=== PATIENT | male | born 1955 | race Caucasian/White ===

== ENCOUNTER → 2019-09-03 09:10 | Outpatient (POV) | payer SELFPAY | PROVIDERS: PCP Emergency Medicine; Visit Provider Dermatology | DX: Z00.00 Encounter for general adult medical examination without abnormal findings (principal) ==

== ENCOUNTER → 2021-03-02 07:41 | Outpatient (CLI) | payer OTHER, SELFPAY ==
[2021-03-02 08:45] LABS: Basophils # 0.1 K/mm3 (0-0.2); Basophils % 1.2 % (0.1-2.0); Eosinophils # 0.1 K/mm3 (0.0-0.4); Eosinophils % 2.2 % (0.1-12.0); Hematocrit 47.7 % (42.0-52.0); Hemoglobin 15.3 g/dL (14.1-18.0); Lymphocytes # 2.1 K/mm3 (0.7-4.5); Lymphocytes % 42.6 % (10-50); Mean Corpuscular HGB Conc 32.1 g/dL (31.8-35.4); Mean Corpuscular Hemoglobin 32.9 pg (27.0-31.2); Mean Corpuscular Volume 102.4 fl (80-94); Mean Platelet Volume 8.2 fl (7.4-10.4); Monocytes # 0.3 K/mm3 (0.1-1.0); Monocytes % 6.8 % (1.7-9.3); Neutrophils # 2.3 K/mm3 (1.8-7.8); Neutrophils % 47.2 % (37.0-80.0); Platelet Count 190 K/mm3 (142-424); Red Blood Count 4.66 M/mm3 (4.60-6.20); Red Cell Distribution Width 12.9 % (11.5-17.5); White Blood Count 4.9 K/mm3 (4.8-10.8)
[2021-03-02 10:33] LABS: Alanine Aminotransferase 51 U/L (12-78); Albumin Level 4.4 g/dl (3.5-5.0); Albumin/Globulin Ratio 1.8 (1.1-1.8); Alkaline Phosphatase 81 U/L (38-126); Anion Gap 10.9 mEq/L (5-15); Aspartate Amino Transferase 44 U/L (17-59); Bilirubin,Total 0.5 mg/dl (0.2-1.3); Blood Urea Nitrogen 29 mg/dl (9-20); Calcium 9.9 mg/dl (8.4-10.2); Carbon Dioxide 32 mmol/L (22.0-30.0); Chloride 102 mmol/L (98-107); Chol/HDL Ratio 3.2 (1-3.5); Cholesterol 153 mg/dl (140-200); Estimated Glomerular Filt Rate 47 ml/min (>60); GFR (African American) 57 ML/MIN (>60); Globulin 2.5 g/dL (1.3-3.2); Glucose 102 mg/dl (74-100); HDL Cholesterol 48 mg/dl (40-60); Magnesium 2.3 mg/dl (1.6-2.3); Potassium 4.9 mmoL/L (3.5-5.1); Sodium 140 mmol/L (136-145); Total Protein,Serum 6.9 g/dl (6.3-8.2); Triglycerides 129 mg/dl (30-150); VLDL Cholesterol 26 mg/dL (0-40)
[2021-03-02 10:44] LABS: Direct LDL Cholesterol 77.84 mg/dL (100-129)
== END ==
PROVIDERS: Visit Provider Nuclear Medicine Nuclear Cardiology
DX: I25.118 Atherosclerotic heart disease of native coronary artery with other forms of angina pectoris (principal); I10 Essential (primary) hypertension; E78.00 Pure hypercholesterolemia, unspecified
CPT/HCPCS: 36415; 80053; 80061; 83735; 85025

== ENCOUNTER 2021-07-10 09:02 | Emergency (ER) | payer OTHER, SELFPAY ==
[2021-07-10 09:31] VITALS: BP 106/67; PULSE 69; RESP 17; TEMP 36.9; O2SAT 100; BMI 27.4
[2021-07-10 09:33] LABS: UTC Influenza A Antigen Negative (Negative); UTC Influenza B Antigen Negative (Negative)
--- NOTE | 2021-07-10 09:33 | HMH.EDUTC ---
[facility] [place] Disposition Clinical Impression: Encounter for laboratory testing for COVID-19 virus Disposition: Home, Self-Care Condition on Discharge: Good Instructions: DI for COVID-19 (Suspected or Confirmed ) Additional Instructions: Your COVID-19 test results should be available later today. Please isolate as if you are positive until test results received Referrals: Inderjit Ibrahim MD [Primary Care Provider] - Time of Disposition: 09:41 Medical Decision Making - Ari Inquiry Pt receiving controlled substance: No Vital Signs: 07/10/21 09:31 Temperature 98.4 F Temperature Source Oral Pulse Rate [Left Radial] 69 Respiratory Rate 17 Blood Pressure [Right Arm] 106/67 L Blood Pressure Mean [Right Arm] 80 02 Sat by Pulse Oximetry 100 - Lab Data Lab results reviewed: Yes: I reviewed the patient's lab results. Orders (Tests/Meds): ORDERS Category Date Time Status Full Resp Panel w/COVID ([facility]) Routine Lab 07/10/21 09:19 Ordered [facility] [place] HPI - General Stated complaint: fever Time Seen by Provider: 07/10/21 09:33 Source of Information: Patient Description of Symptoms (Recalled from Triage Doc. by RN): patient comes in today for a covid test. patient states that last night he ran a fever and had body aches. HEENT Symptoms (Recalled from RN notes): No Resp Symptoms (Recalled from RN notes): No Skin Symptoms (Recalled from RN notes): No MS Symptoms (Recalled from RN notes): No Functional Status (Recalled from RN notes): wnl - History of Present Illness Provider Complaint: Patient had acute onset presumed fever, body aches last night. States has a forehead thermometer and he couldn't get an accurate reading. Has joint and muscle soreness. Denies ear pain, congestion, cough, vomiting, diarrhea. No known sick contacts. Onset (ago): day(s) (1) Location: chest Relieving factors: none Exacerbating factors: none Associated symptoms: fever/chills Treatments prior to arrival: none - Related Data Home Medications Medication Instructions Recorded Confirmed fluorouracil 5 % topical cream TOPICAL 10/29/19 10/29/19 isosorbide mononitrate 60 mg mg PO 10/29/19 10/29/19 tablet,extended release 24 hr lorazepam 0.5 mg tablet 0.5 mg PO tab 10/29/19 10/29/19 metoprolol succinate 25 mg PO 10/29/19 10/29/19 tablet,extended release 24 hr nitroglycerin 0.4 mg sublingual 0.4 mg SUBLINGUAL Q5M PRN 10/29/19 10/29/19 tablet pantoprazole 40 mg tablet,delayed 40 mg PO tab 10/29/19 10/29/19 release potassium chloride 20 mEq 20 meq PO DAILY 10/29/19 10/29/19 tablet,extended release ranolazine 500 mg tablet,extended 500 mg PO BID 10/29/19 10/29/19 release,12 hr sucralfate 1 gram tablet 1 g PO tab 10/29/19 10/29/19 trazodone 50 mg tablet 50 mg PO tab 10/29/19 10/29/19 triamcinolone acetonide 0.1 % TOPICAL 10/29/19 10/29/19 topical ointment Previous Rx's Medication Instructions Recorded fluconazole 150 mg tablet 150 mg PO Q OTHER DAY #3 tab 10/29/19 Allergies Allergy/AdvReac Type Severity Reaction Status Date / Time clopidogrel [From Plavix] Allergy Intermediate upset Verified 07/10/21 09:33 stomach - Worker's Comp Is this a Worker's Comp case?: No [facility] History - Hepatitis A Screen Attestation statement:: This patient has been screened for Hepatitis A risk factors. I have reviewed the patient's past medical history: Yes Medical History: Reports:: Gastroesophageal Reflux Disease(GERD), Hypertension, Palpitations, Ulcer, Valvular Heart Disease (leaky valve) Other Surgeries: Yes: Cardiac Surgery, Coronary Stent, EGD Amputation: No Fractures: Yes (elbow) - Social History Smoking Status: Never smoker Alcohol Intake: current Alcohol Intake Frequency:: holidays/special occasions only Substance Use Type: denies use Occupational Status: retired Family Hx:: Cancer, Diabetes, Heart Attack, Hypertension, Stroke ROS Obtained: Yes All systems reviewed & no additional comp
[2021-07-10 09:37] LABS: Adenovirus,PCR Not Detected (NotDetected); Bordetella Pertussis Not Detected (NotDetected); Chlamydophila Pneumoniae, PCR Not Detected (NotDetected); Coronavirus 19, PCR Not Detected (NotDetected); Coronavirus 229E Not Detected (NotDetected); Coronavirus NL63 Not Detected (NotDetected); Coronavirus OC43 Not Detected (NotDetected); Coronovirus HKU1,PCR Not Detected (NotDetected); Human Metapneumovirus Not Detected (NotDetected); Influenza A, PCR Not Detected (NotDetected); Influenza AH1, 2009 Not Detected (NotDetected); Influenza AH1, PCR Not Detected (NotDetected); Influenza AH3,PCR Not Detected (NotDetected); Influenza B, PCR Not Detected (NotDetected); Mycoplasma Pneumoniae, PCR Not Detected (NotDetected); Parainfluenza 1, PCR Not Detected (NotDetected); Parainfluenza 2, PCR Not Detected (NotDetected); Parainfluenza 3, PCR Not Detected (NotDetected); Parainfluenza 4, PCR Not Detected (NotDetected); Respiratory Syncytial Virus Not Detected (NotDetected); Rhinovirus/Enterovirus Not Detected (NotDetected)
[2021-07-10 09:43] VITALS: BP 106/67; PULSE 69; RESP 17; TEMP 36.9
== END 2021-07-10 09:45 | disposition home or self-care (01) ==
PROVIDERS: Emergency Provider Physician Assistant; PCP Emergency Medicine
DX: Z20.822 Contact with and (suspected) exposure to COVID-19 (principal); R50.9 Fever, unspecified; R52 Pain, unspecified
CPT/HCPCS: 87581; 87632; 87798; 87804; 99212; C9803; G0463; U0003; U0005

== ENCOUNTER → 2021-08-13 07:51 | Outpatient (CLI) | payer OTHER, SELFPAY ==
--- NOTE | 2021-08-13 08:00 | CT_ITS ---
FINAL REPORT TECHNIQUE: Axial CT images were performed from the lung apices through the upper abdomen. Coronal reformats were submitted. This study was performed with techniques to keep radiation doses as low as reasonably achievable (ALARA). Individualized dose reduction techniques using automated exposure control or adjustment of mA and/or kV according to the patient's size were employed. CLINICAL HISTORY: ENLARGED LYMPH NODES, pain mid chest per patient FINDINGS: There is no axillary adenopathy. There is no hilar or mediastinal mass or adenopathy. Heart size is normal. There is no pericardial or pleural effusion. Limited images of the upper abdomen are unremarkable. No suspicious infiltrate or nodule is identified on lung window images. There is a calcified granuloma in the left lower lobe. IMPRESSION: No acute process. Reviewed, Interpreted and Dictated by Marcelino Carter III, MD Transcribed by Urvashi Leos Authenticated and [facility]
== END ==
PROVIDERS: PCP Emergency Medicine; Visit Provider Nurse Practitioner Family
DX: R59.0 Localized enlarged lymph nodes (principal)
CPT/HCPCS: 71250

== ENCOUNTER 2024-04-04 07:24 | Outpatient (CLI) | payer MEDICARE, SELFPAY ==
[2024-04-04 08:04] LABS: Basophils % 0.4 % (0.1-2.0); Eosinophils # 0.1 K/mm3 (0.0-0.4); Eosinophils % 2.2 % (0.1-12.0); Hematocrit 42.9 % (42.0-52.0); Hemoglobin 15.1 g/dL (14.1-18.0); Lymphocytes # 1.5 K/mm3 (0.7-4.5); Lymphocytes % 32.5 % (10-50); Mean Corpuscular HGB Conc 35.2 g/dL (31.8-35.4); Mean Corpuscular Hemoglobin 32.3 pg (27.0-31.2); Mean Corpuscular Volume 91.9 fl (80-94); Mean Platelet Volume 9.9 fl (7.4-10.4); Monocytes # 0.5 K/mm3 (0.1-1.0); Monocytes % 9.9 % (1.7-9.3); Neutrophils # 2.5 K/mm3 (1.8-7.8); Platelet Count 156 K/mm3 (142-424); Red Blood Count 4.67 M/mm3 (4.60-6.20); Red Cell Distribution Width 11.8 % (11.5-17.5); White Blood Count 4.6 K/mm3 (4.8-10.8)
[2024-04-04 08:31] LABS: Alanine Aminotransferase 52 U/L (12-78); Albumin Level 4.3 g/dl (3.5-5.0); Alkaline Phosphatase 81 U/L (38-126); Aspartate Amino Transferase 43 U/L (17-59); Bilirubin,Total 0.6 mg/dl (0.2-1.3); Blood Urea Nitrogen 28 mg/dl (9-20); Calcium 9.6 mg/dl (8.4-10.2); Carbon Dioxide 31 mmol/L (22.0-30.0); Chloride 104 mmol/L (98-107); Chol/HDL Ratio 3.3 (1-3.5); Cholesterol 129 mg/dl (140-200); Estimated Glomerular Filt Rate 47 ml/min (>60); GFR (African American) 57 ML/MIN (>60); Globulin 2.1 g/dL (1.3-3.2); Glucose 106 mg/dl (74-100); HDL Cholesterol 39 mg/dl (40-60); Potassium 4.5 mmoL/L (3.5-5.1); Total Protein,Serum 6.4 g/dl (6.3-8.2); Triglycerides 102 mg/dl (30-150); VLDL Cholesterol 20 mg/dL (0-40)
[2024-04-04 08:34] LABS: Magnesium 2.2 mg/dl (1.6-2.3)
[2024-04-04 08:41] LABS: Direct LDL Cholesterol 55.82 mg/dL (100-129)
[2024-04-04 08:44] LABS: Anion Gap 5.5 mEq/L (5-15); Sodium 136 mmol/L (136-145)
[2024-04-04 08:48] LABS: 25-OH Vitamin D, Total 62.1 ng/mL (30-100)
[2024-04-04 09:01] LABS: Prostate Specific Ag Screen 0.5 ng/ml (0.0-4.0)
[2024-04-04 10:36] LABS: Hemoglobin A1C 5.7 % (4.0-6.0)
== END 2024-04-04 23:59 | disposition home or self-care (01) ==
LOC: LAB 07:30
PROVIDERS: Student in an Organized Health Care Education/Training Program; PCP Internal Medicine; Visit Provider Nurse Practitioner Family
DX: Z13.21 Encounter for screening for nutritional disorder (principal); Z12.5 Encounter for screening for malignant neoplasm of prostate; Z13.1 Encounter for screening for diabetes mellitus; I25.10 Atherosclerotic heart disease of native coronary artery without angina pectoris; R53.83 Other fatigue; Z68.29 Body mass index [BMI] 29.0-29.9, adult; E66.3 Overweight
CPT/HCPCS: 36415; 80053; 80061; 82306; 83036; 83735; 85025; G0103

== ENCOUNTER 2024-04-18 08:28 | Outpatient (CLI) | payer MEDICARE, SELFPAY ==
[2024-04-18 08:47] LABS: Basophils % 0.2 % (0.1-2.0); Eosinophils # 0.1 K/mm3 (0.0-0.4); Eosinophils % 1.7 % (0.1-12.0); Hematocrit 42.4 % (42.0-52.0); Hemoglobin 14.6 g/dL (14.1-18.0); Lymphocytes # 1.6 K/mm3 (0.7-4.5); Lymphocytes % 30.5 % (10-50); Mean Corpuscular HGB Conc 34.4 g/dL (31.8-35.4); Mean Corpuscular Hemoglobin 31.2 pg (27.0-31.2); Mean Corpuscular Volume 90.6 fl (80-94); Mean Platelet Volume 9.5 fl (7.4-10.4); Monocytes # 0.6 K/mm3 (0.1-1.0); Monocytes % 11.5 % (1.7-9.3); Neutrophils % 55.9 % (37.0-80.0); Platelet Count 158 K/mm3 (142-424); Red Blood Count 4.68 M/mm3 (4.60-6.20); Red Cell Distribution Width 11.7 % (11.5-17.5); White Blood Count 5.4 K/mm3 (4.8-10.8)
[2024-04-18 09:27] LABS: Alanine Aminotransferase 52 U/L (12-78); Albumin Level 4.4 g/dl (3.5-5.0); Albumin/Globulin Ratio 1.9 (1.1-1.8); Alkaline Phosphatase 89 U/L (38-126); Anion Gap 7.3 mEq/L (5-15); Aspartate Amino Transferase 38 U/L (17-59); Bilirubin,Total 0.6 mg/dl (0.2-1.3); Blood Urea Nitrogen 23 mg/dl (9-20); Calcium 9.2 mg/dl (8.4-10.2); Carbon Dioxide 31 mmol/L (22.0-30.0); Chloride 104 mmol/L (98-107); Chol/HDL Ratio 2.9 (1-3.5); Cholesterol 129 mg/dl (140-200); Estimated Glomerular Filt Rate 51 ml/min (>60); GFR (African American) 61 ML/MIN (>60); Globulin 2.3 g/dL (1.3-3.2); Glucose 112 mg/dl (74-100); HDL Cholesterol 44 mg/dl (40-60); Potassium 4.3 mmoL/L (3.5-5.1); Sodium 138 mmol/L (136-145); Total Protein,Serum 6.7 g/dl (6.3-8.2); Triglycerides 111 mg/dl (30-150); VLDL Cholesterol 22 mg/dL (0-40)
[2024-04-18 09:38] LABS: Direct LDL Cholesterol 53.94 mg/dL (100-129)
[2024-04-18 09:48] LABS: Hemoglobin A1C 5.6 % (4.0-6.0)
[2024-04-26 01:44] LABS: Testosterone, Total, LC/MS 378 ng/dL (.)
== END 2024-04-18 23:59 | disposition home or self-care (01) ==
LOC: LAB 08:30
PROVIDERS: PCP Internal Medicine; Visit Provider Internal Medicine
DX: R53.83 Other fatigue (principal); K21.9 Gastro-esophageal reflux disease without esophagitis; I25.10 Atherosclerotic heart disease of native coronary artery without angina pectoris; Z13.220 Encounter for screening for lipoid disorders; Z13.1 Encounter for screening for diabetes mellitus
CPT/HCPCS: 36415; 80053; 80061; 83036; 84403; 85025

== ENCOUNTER 2024-06-24 20:06 | Emergency (ER) | payer MEDICARE, SELFPAY ==
--- NOTE | 2024-06-24 20:06 | ECG_ITS ---
APPROVED REPORT Exam: Resting ECG HR:54 bpm ECG Measurements Heart Rate 54 AXES RI 214 P 70 QRSd 88 QRS -11 QT 411 T -20 QTc 397 Conclusion SINUS BRADYCARDIA WITH FIRST DEGREE AV BLOCK NONSPECIFIC T-WAVE ABNORMALITY No STEMI Electronically signed by : VERONICA FELIZ, 06/25/2024 06:57:20
[2024-06-24 20:13] VITALS: BP 151/74; PULSE 60; RESP 18; TEMP 36.6; O2SAT 97; BMI 29.2
--- OUTSIDE RECORDS SUMMARY | 2024-06-24 20:15 | XMS_ITS | Data Portability ---
Author Organization [facility] Kamiah Address [address] [place] [address] Care Team Providers Care In Flight Technician Name Role Phone INDERJIT GUPTA Primary Care Provider [phone] Assessment No assessment recorded. Plan of Treatment Reminders Order Date Submit Date Provider Last Modified By Organization Details Last Modified Time Details Appointments None recorded. Lab PSA, serum or plasma 2022 023 [facility] (Laboratory), [address] [place], [address], 3 14:47:28 CMP, serum or plasma 2022 023 [facility] (Laboratory), [address] [place], [address], 3 14:47:32 CBC w/ auto diff 2022 023 [facility] (Laboratory), [address] [place], [address], 3 13:38:21 TSH, serum or plasma 2022 023 [facility] (Laboratory), [address] [place], [address], 3 14:47:30 vitamin B12, serum 2022 023 [facility] (Laboratory), [address] [place], [address], 3 14:47:35 vitamin D, 25-hydroxy , total, serum 2022 023 [facility] (Laboratory), [address] , [place], [address], 3 11:25:24 abo group + rh type, blood 2022 023 [facility] (Laboratory), [address], [place], [address], 3 13:50:46 noninvasiv e colorectal cancer DNA + occult blood screening, QL, stool 2022 023 [facility] (Cologuard Orders Only), [address], [address], [place], [address], 3 12:38:03 lipid panel, serum 2022 023 [facility] (Laboratory), [address] [place], [address], 3 14:47:33 HbA1c (hemoglobi n A1c), blood 2022 023 [facility] (Laboratory), [address] [place], [address], 3 14:17:55 Referral dermatolog ist referral 2022 023 [facility], [address], [place], [address], 3 07:39:15 Procedures None recorded. Surgeries None recorded. Imaging None recorded. Medication Orders None recorded. Patient TargetsNo targets recorded. Patient InstructionsNo instructions recorded. 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 Referring Physician: Inderjit Gupta, Family Medicine, Encounter Date: 09/28/2022 Results Created Date Observation Date Name Description Value Unit Range Abnormal Flag Note LastModifiedBy Organization Detail LastModifiedTime 09/29/19 23 09/28/2022 CBC AUTO W DIFF WBC 5.1 10 4.5-11 .5 Not Available [facility] (Lab Registration) [address] [place], [address], 09/28/2022 13:38:21 09/29/19 23 09/28/2022 CBC AUTO W DIFF RBC 4.52 10 4.25-5 .57 Not Available [facility] (Lab Registration) [address] [place], [address], 09/28/2022 13:38:21 09/29/19 23 09/28/2022 CBC AUTO W DIFF HGB 14.6 g/dL 13.5-1 7.2 Not Available [facility] (Lab Registration) [address] [place], [address], 09/28/2022 13:38:21 09/29/19 23 09/28/2022 CBC AUTO W DIFF HCT 41.1 % 42.0-5 2.0 low Not Available [facility] (Lab Registration) [address] [place], [address], 09/28/2022 13:38:21 09/29/19 23 09/28/2022 CBC AUTO W DIFF MCV 90.9 fL 80-95 Not Available [facility] (Lab Registration) [address] [place], [address], 09/28/2022 13:38:21 09/29/19 23 09/28/2022 CBC AUTO W DIFF MCH 32.3 pg 27.0-3 4.0 Not Available [facility] (Lab Registration) [address] [place], [address], 09/28/2022 13:38:21 09/29/19 23 09/28/2022 CBC AUTO W DIFF MCHC 35.5 g/dL 32.0-3 6.0 Not Available [facility] (Lab Registration) [address] [place], [address], 09/28/2022 13:38:21 09/29/19 23 09/28/2022 CBC AUTO W DIFF platelet count 163 10 150-45 0 Not Available [facility] (Lab Registration) [address] [place], [address], 09/28/2022 13:38:21 09/29/19 23 09/28/2022 CBC AUTO W DIFF RDW 11.7 % 12.3-1 5.1 low Not Available [facility] (Lab Registration) [address] [place], [address], 09/28/2022 13:38:21 09/29/19 23 09/28/2022 CBC AUTO W DIFF MPV 10.3 fL 7.4-10 .4 Not Available [facility] (Lab Registration) [address] [place], [address], 09/28/2022 13:38:21 09/29/19 23 09/28/2022 CBC AUTO W DIFF granulocyte% 57.5 % 40-75 Not Available [facility] (Lab Registration) [address] [place], [address], 09/28/2022 13:38:21 09/29/19 23 09/28/2022 CBC AUTO W DIFF lymphocyte% 30.7 % 15-57 Not Available [facility] (Lab Registration) [address] [place], [address], 09/28/2022 13:38:21 09/29/19 23 09/28/2022 CBC AUTO W DIFF monocyte% 10.4 % 4.0-12 .0 Not Available [facility] (Lab Registration) [address] [place], [address], 09/28/2022 13:38:21 09/29/19 23 09/28/2022 CBC AUTO W DIFF eosinophil% 1.2 % 0.0-4. 0 Not Available [facility] (Lab Registration) [address] [place], [address], 09/28/2022 13:38:21 09/29/19 23 09/28/2022 CBC AUTO W DIFF basophil% 0.2 % 0.0-1. 0 Not Available [facility] (Lab Registration) [address] [place], [address], 09/28/2022 13:38:21 09/29/19 23 09/28/2022 CBC AUTO W DIFF immature granulocytes % 0.0 % 0.0-0. 8 Not Available [facility] (Lab Registration) [address] [place], [address], 09/28/2022 13:38:21 09/29/19 23 09/28/2022 CBC AUTO W DIFF granulocyte# 2.94 10 Not Available [facility] (Lab Registration) [address] [place], [address], 09/28/2022 13:38:21 09/29/19 23 09/28/2022 CBC AUTO W DIFF lymphocyte# 1.57 10 Not Available [facility] (Lab Registration) [address] [place], [address], 09/28/2022 13:38:21 09/29/19 23 09/28/2022 CBC AUTO W DIFF monocyte# 0.53 10 Not Available [facility] (Lab Registration) [address] [place], [address], 09/28/2022 13:38:21 09/29/19 23 09/28/2022 CBC AUTO W DIFF eosinophil# 0.06 10 Not Available [facility] (Lab Registration) [address] [place], [address], 09/28/2022 13:38:21 09/29/19 23 09/28/2022 CBC AUTO W DIFF basophil# 0.01 10 Not Available [facility] (Lab Registration) [address] [place], [address], 09/28/2022 13:38:21 09/29/19 23 09/28/2022 CBC AUTO W DIFF immature granulocytes # 0.00 10 Not Available [facility] (Lab Registration) [address] [place], [address], 09/28/2022 13:38:21 09/29/19 23 09/28/2022 CBC AUTO W DIFF manual differential NO Not Available [facility] (Lab Registration) [address] [place], [address], 09/28/2022 13:38:21 09/29/19 23 09/28/2022 CBC AUTO W DIFF note Unles s other leonardo noted testi ng perfo rmed at: [facility] [address] [place] [address] [phone] Stanislav groves MD CLIA: [id number] Not Available [facility] (Lab Registration) [address] [place], [address], 09/28/2022 13:38:21 09/29/19 23 09/28/2022 ABO/R H ABO/Rh O NEGATI VE Not Available [facility] (Lab Registration) [address] [place], [address], 09/28/2022 13:50:46 09/29/19 23 09/28/2022 ABO/R H status information COMPLE ALON Not Available [facility] (Lab Registration) [address] [place], [address], 09/28/2022 13:50:46 09/29/19 23 09/28/2022 ABO/R H note Unles s other leonardo noted testi ng perfo rmed at: [facility] [address] [place] [address] [phone] Stanislav groves MD CLIA: [id number] Not Available [facility] (Lab Registration) [address] [place], [address], 09/28/2022 13:50:46 09/29/19 23 09/28/2022 HEMOG LOBIN A1C glycosylated hemoglobin A1C 5.6 % 4.5-6. 2 Not Available [facility] (Lab Registration) [address] [place], [address], 09/28/2022 14:17:55 09/29/1909/28/2022 HEMOG LOBIN A1C estimated average glucose 114 mg/dL 82-131 Not Available [facility] (Lab Registration) [address] [place], [address], 09/28/2022 14:17:55 09/29/19 23 09/28/2022 HEMOG LOBIN A1C note Unles s other leonardo noted testi ng perfo rmed at: [facility] [address], [place] [id number] [phone] Stanislav groves MD CLIA: [id number] Not Available [facility] (Lab Registration) [address] [place], [address], 09/28/2022 14:17:55 09/29/1909/28/2022 PROST ATE SPECI FIC AG SCREE N prostate specific Ag screen 0.39 NG/mL 0.0-4. 0 Not Available [facility] (Lab Registration) [address] [place], [address], 09/28/2022 14:47:28 09/29/1909/28/2022 PROST ATE SPECI FIC AG SCREE N note Unles s other leonardo noted testi ng perfo rmed at: [facility] [address] [place] [address] [phone] Stanislav groves MD CLIA: [id number] Not Available [facility] (Lab Registration) [address] [place], [address], 09/28/2022 14:47:28 09/29/19 23 09/28/2022 THYRO ID STIMU LATIN G HORMO NE thyroid stimulating hormone 1.43 mIU/m L 0.34-4 .80 Not Available [facility] (Lab Registration) [address] [place], [address], 09/28/2022 14:47:30 09/29/19 23 09/28/2022 THYRO ID STIMU LATIN G HORMO NE note Unles s other leonardo noted testi ng perfo rmed at: [facility] [address] [place] [address] [phone] Stanislav groves MD CLIA: [id number] Not Available [facility] (Lab Registration) [address] [place], [address], 09/28/2022 14:47:30 09/29/19 23 09/28/2022 VITAM IN D TOTAL (D2+D 3) vitamin D25 (D2+D3) 54.6 NG/mL 30-100 Not Available [facility] (Lab Registration) [address] [place], [address], 09/28/2022 14:47:31 09/29/19 23 09/28/2022 VITAM IN D TOTAL (D2+D 3) note Unlwilliam groves other leonardo noted testi ng perfo rmed at: [facility] [address] [place] [address] [phone] Stanislav groves MD CLIA: [id number] Not Available [facility] (Lab Registration) [address] [place], [address], 09/28/2022 14:47:31 09/29/1909/28/2022 COMP METAB OLIC PANEL sodium 140 mmol/ L 136-14 5 Not Available [facility] (Lab Registration) [address] [place], [address], 09/28/2022 14:47:32 08/23/09/28/2022 COMP METAB OLIC PANEL potassium 4.1 mmol/ L 3.5-5. 1 Not Available [facility] (Lab Registration) [address] [place], [address], 09/28/2022 14:47:32 09/29/1909/28/2022 COMP METAB OLIC PANEL chloride 103 mmol/ L 98-107 Not Available [facility] (Lab Registration) [address] [place], [address], 09/28/2022 14:47:32 09/29/19 23 09/28/2022 COMP METAB OLIC PANEL carbon dioxide 29 mmol/ L 21-32 Not Available [facility] (Lab Registration) [address] [place], [address], 09/28/2022 14:47:32 09/29/1909/28/2022 COMP METAB OLIC PANEL anion gap 8.0 Not Available [facility] (Lab Registration) [address] [place], [address], 09/28/2022 14:47:32 09/29/19 23 09/28/2022 COMP METAB OLIC PANEL glucose 116 mg/dL 70-110 high Not Available [facility] (Lab Registration) [address] [place], [address], 09/28/2022 14:47:32 09/29/1909/28/2022 COMP METAB OLIC PANEL blood urea nitrogen 25 mg/dL 7-18 high Not Available [facility] (Lab Registration) [address] [place], [address], 09/28/2022 14:47:32 09/29/1909/28/2022 COMP METAB OLIC PANEL creatinine 1.4 mg/dL 0.8-1. 3 high Not Available [facility] (Lab Registration) [address] [place], [address], 09/28/2022 14:47:32 09/29/19 23 09/28/2022 COMP METAB OLIC PANEL BUN/creatini ne ratio 17.9 ratio 9-21 Not Available [facility] (Lab Registration) [address] [place], [address], 09/28/2022 14:47:32 09/29/1909/28/2022 COMP METAB OLIC PANEL estimated glom filtration rate 54 mL/mi n >60- low Not Available [facility] (Lab Registration) [address] [place], [address], 09/28/2022 14:47:32 09/29/1909/28/2022 COMP METAB OLIC PANEL total protein 7.1 g/dL 6.4-8. 2 Not Available [facility] (Lab Registration) [address] [place], [address], 09/28/2022 14:47:32 09/29/1909/28/2022 COMP METAB OLIC PANEL albumin 3.9 g/dL 3.4-5. 0 Not Available [facility] (Lab Registration) [address] [place], [address], 09/28/2022 14:47:32 09/29/1909/28/2022 COMP METAB OLIC PANEL calcium 9.3 mg/dL 8.5-10 .1 Not Available [facility] (Lab Registration) [address] [place], [address], 09/28/2022 14:47:32 09/29/1909/28/2022 COMP METAB OLIC PANEL corrected calcium 9.4 mg/dL 8.5-10 .1 Not Available [facility] (Lab Registration) [address] [place], [address], 09/28/2022 14:47:32 09/29/1909/28/2022 COMP METAB OLIC PANEL bilirubin total 0.5 mg/dL 0.4-1. 5 Not Available [facility] (Lab Registration) [address] [place], [address], 09/28/2022 14:47:32 09/29/19 23 09/28/2022 COMP METAB OLIC PANEL AST (SGOT) 29 U/L 15-37 Not Available [facility] (Lab Registration) [address] [place], [address], 09/28/2022 14:47:32 09/29/19 23 09/28/2022 COMP METAB OLIC PANEL ALT (SGPT) 56 U/L 12-78 Not Available [facility] (Lab Registration) [address] [place], [address], 09/28/2022 14:47:32 09/29/1909/28/2022 COMP METAB OLIC PANEL alk phosphatase 95 U/L Not Available [facility] (Lab Registration) [address] [place], [address], 09/28/2022 14:47:32 09/29/19 23 09/28/2022 COMP METAB OLIC PANEL note Unles s other leonardo noted testi ng perfo rmed at: [facility] [address] [place] [address] [phone] Stanislav groves MD CLIA: [id number] Not Available [facility] (Lab Registration) [address] [place], [address], 09/28/2022 14:47:32 09/29/19 23 09/28/2022 LIPID PANEL triglyceride 155 mg/dL 20-200 The Natio nal [facility] [employer]ca t[employer]gr am ([employer] ) has set the follo wing guide lines for Fasti ng Trigl yceri donna: KESHAV L: <150 mg/dL BORDE RLINE HIGH: 150 - 199 mg/dL HIGH: 200 - 499 mg/dL VERY HIGH: > or =500 mg/dL Not Available [facility] (Lab Registration) [address] [place], [address], 09/28/2022 14:47:33 09/29/19 09/28/2022 LIPID PANEL cholesterol 141 mg/dL 0-200 The Natio nal [facility] [employer]ca t[employer] Progr am ([facility] ) has set the follo wing guide lines for Fasti ng Ashleigh stero l: STEVIE ABLE: <200 mg/dL BORDE RLINE HIGH: 200 - 239 mg/dL HIGH: > or =240 mg/dL Not Available [facility] (Lab Registration) [address], [address], [address], 09/28/2022 14:47:33 09/29/1909/28/2022 LIPID PANEL HDL cholesterol 51 mg/dL 60- low The Natio n[facility] [employer] [employer]ca t[employer]gr am ([facility] ) has set the follo wing guide lines for Fasti ng HDL Ashleigh stero l: LOW HDL: <40 mg/dL KESHAV L: 40 - 60 mg/dL STEVIE ABLE: >60 mg/dL Not Available [facility] (Lab Registration) [address], [address], [address], 09/28/2022 14:47:33 09/29/19 23 09/28/2022 LIPID PANEL LDL calculated 59 mg/dL 100- low The Natio n[facility] [employer] [employer]ca t[employer]gr am ([facility] ) has set the follo wing guide lines for Fasti ng LDL Ashleigh stero l: OPTIM AL: < 100 mg/dL LOW RISK: 100 - 129 mg/dL BORDE RLINE HIGH: 130 - 159 mg/dL HIGH: 160 - 189 mg/dL VERY HIGH: > or = 190 mg/dL Not Available [facility] (Lab Registration) [address], [place], [address], 09/28/2022 14:47:33 09/29/1909/28/2022 LIPID PANEL chol/HDL ratio 3 ratio -5 Not Available [facility] (Lab Registration) [address] [place], [address], 09/28/2022 14:47:33 09/29/19 23 09/28/2022 LIPID PANEL note Unles s other leonardo noted testi ng perfo rmed at: [facility] [address] [place] [address] [phone] Stanislav groves MD CLIA: [id number] Not Available [facility] (Lab Registration) [address] [place], [address], 09/28/2022 14:47:33 09/29/1909/28/2022 VITAM IN B12 vitamin B12 650 pg/mL 193-98 6 Not Available [facility] (Lab Registration) [address] [place], [address], 09/28/2022 14:47:35 09/29/1909/28/2022 VITAM IN B12 note Kelly leonardo noted testi ng perfo rmed at: [facility] [address] [place] [address] [phone] Stanislav groves MD CLIA: [id number] Not Available [facility] (Lab Registration) [address] [place], [address], 09/28/2022 14:47:35 Result Notes None recorded. Procedures Surgical History Date Name Laterality Status Provider Name and Address Organization Details Recorded Time 09/29/19 Medicare Annual Wellness Visit Health Risk Assessment completed [facility] & [place] 09/28/2022 11:21:10 Imaging Results None recorded. Procedure Notes None recorded. Medical Equipment None Reported. Allergies Allergen ID Allergen Name Allergen Category Reaction Reaction Severity Criticality Documentation Date Start Date Code Code System Note Provider Name and Address Organization Details Recorded Time 02089 Plavix medicatio n Not available Not available Not available 09/19/2022 66832 2 RxNorm Barbara morales [facility] & [place] 10:14:42 Medications Name Sig Start Date Stop Date Status Note LastModified by Organization Details LastModified Time atorvastatin 40 mg tablet Take 1 tablet by mouth once daily 2023 active Not Available Not Available Not Avai lable sucralfate 1 gram tablet active Not Available Not Available Not Available trazodone 100 mg tablet TAKE 1 TABLET BY MOUTH EVERY DAY AT BEDTIME active Not Available Not Available No t Available pantoprazole 40 mg tablet,delayed release denied. needs appt active Not Available Not Available No t Available metoprolol succinate ER 25 mg tablet,extende d release 24 hr TAKE 1 TABLET BY MOUTH ONCE DAILY active Not Available Not Available No t Available potassium chloride ER 10 mEq tablet,extende d release(part/c ryst) denied-ne eds appt active Not Available Not Available No t Available Vitals Date Recorded Body height Body mass index (BMI) Body weight Body temperature Oxygen saturation Oxygen saturation in Arterial blood by Pulse oximetry Heart rate Respiratory rate Systolic blood pressure Diastolic blood pressure Provider Name and Address Organization Details Last Updated DateTime 3 162.56 cm 29.4 kg/m2 68515.3 g 97.7 [degF] 96 % 96 % 67 /min 16 /min 110 mm[Hg] 65 mm[Hg] [facility] [place] [facility] & [place] 3 11:19:01 Social History None recorded. Functional Status None recorded. Mental Status None recorded. Family History Relationship Description Onset Age of this Age Resolved Age Notes LastModified by Organization Details LastModified Time Mother Diabetes mellitus [email or web address] Not available 2022 10:42:25 Mother Cerebrovascu lar accident pt. added direct ly (09/25) [email or web address] Not available 09/25/2022 15:16:14 Maternal Grandfather Essential hypertension [email or web address] Not available 10:42:26 Medical History Condition Response Reflux/GERD Y Past Encounters Encounter ID Performer Location Encounter Start Date Encounter Closed Date Diagnosis/Indication Diagnosis SNOMED-CT Code Diagnosis ICD10 Code Diagnosis Note [id number] Inderjit Gupta MD [facility] [address] [id number] 09/28/2022 10:42:04 09/28/2022 11:26:57 Screening for malignant neoplasm of colon 094357221 Z12.11 [facility] examination 357656264 Z00.00 Will call patient with results of lab work. Essential hypertension 42564767 I10 patient tells me has stopped taking his metoprolol because he saw on YouTube that it can cause sleep issues. He is unwilling to restarted at this time. His blood pressure appears to be normal so will continue to monitor for now. Screening for malignant neoplasm of prostate 811677405 Z12.5 Diabetes m ellitus screening 338754636 Z13.1 Hyperlipidemia 23224086 E78.5 Skin lesion 78401058 L98 .9 patient has a skin lesion that is scaly on his upper back. Will refer him to Dermatolog y for evaluation and treatment. Health Concerns Section Related Observation LastModified by Organization Detai ls LastModified Time None Recorded Concern Status LastModified by Organization Details LastModified Time None Recorded Advance Directives Directive None Recorded Payers Insurance Date Sequence Insurance Name Policy Number Policy Banda Covered Member ID Banda Member ID Guarantor Name 12/14/2020 1 [employer] (MEDICAID REPLACEMENT - HMO) [id number] Kavon Tolentino [id number] Kavon Tolentino 08/26/2023 1 [employer] (MEDICARE REPLACEMENT HMO) [id number] aKvon Tolentino [id number] Kavon Tolentino 09/26/2022 1 [employer] [facility] (MEDICAID HMO) Kavon Tolentino [id number] Kavon Tolentino Notes Date Note Type Note Provider Name and Address Organization Details Recorded Time 09/28/2022 text/html patient presents today for annual Medicare physical examination. He has several issues that he wants to discuss. He has a lesion on his back. He needs referral to a specialist Inderjit Gupta MD [address] [place] [address], [phone], [facility] [place] & [place] 09/28/2022 11:30:43
--- NOTE | 2024-06-24 20:29 | ED_ITS ---
Discharge Plan Disposition Patient Disposition: Home, Self-Care Condition: Good Prescriptions Prescriptions: No Action nitroglycerin 0.4 mg tablet, sublingual 0.4 mg SUBLINGUAL Q5M PRN Rx Instructions: do not exceed 3 doses per episode Voquezna 10 mg tablet 0RF pantoprazole 40 mg tablet,delayed release (DR/EC) 40 mg PO DAILY Qty: 90 1RF amoxicillin 500 mg tablet 500 mg PO BID 10 Days Qty: 20 0RF trazodone 100 mg tablet 100 mg PO DAILY Qty: 90 0RF atorvastatin 40 mg tablet 40 mg PO DAILY Qty: 90 1RF metoprolol succinate 25 mg tablet extended release 24 hr 12.5 mg PO DAILY Qty: 90 3RF potassium chloride 10 mEq tablet,ER particles/crystals See Rx Instructions .ROUTE .COMPLEX Qty: 90 1RF Dose Instruction: TAKE ONE TABLET BY MOUTH EVERY DAY Rx Instructions: TAKE ONE TABLET BY MOUTH EVERY DAY Referrals Follow up/Referrals: Provider,Referral, [Primary Care Provider] - See instructions Activity Restrictions/Add. Instructions Additional Instructions/Restrictions: You were evaluated in the ER and are appropriate for discharge at this time. Continue all home medications as previously prescribed. Please make an appointment with your supervisor [employer] for reevaluation in 2 to 3 days. Also make an appointment with your primary care doctor for reevaluation as soon as possible. Return to the ER with any new, worsening, or otherwise concerning symptoms. Clinical Impressions Clinical Impression: Neck pain, Chest pain Print Language Print Language: Kinyarwanda Discharge ED Provider: Jhoan Campos HPI <Jhoan Campos MD - Last Filed: 06/24/24 23:03> General Chief Complaint: Chest Pain Stated Complaint: chest pain Time Seen by Provider: 06/24/24 20:17 Mode of Arrival: Ambulatory Source of Information: Patient and Spouse Description of Symptoms (Recalled from ER Triage Doc. by RN): pt presents with c/o midsternal chest pain that began approx 3 days ago. Pt reports to taking nitro at 10AM. History of Present Illness HPI narrative: Patient is 69-year-old male with past medical history of coronary artery disease status post stenting who presents emergency department for evaluation of chest pain and neck pain. Onset was acute over the last 72 hours. It does not go through to his back is moderate to severe in intensity. He follows with his supervisor [employer]ott[employer] who recommended CTA however he is concerned about waiting until and presents here for continued evaluation. No infectious symptoms such as cough or vomiting. Please note that above description of symptoms, in this electronic medical record under categorization of recalled from ER triage doctor by RN are reflective of an initial nursing assessment, however, is not reflective of my full history and physical exam that was personally taken and clarified. Consequentially, this preceding description of symptoms, which may include the patient's categorized chief complaint in the EMR, do not reflect my personal clinical impression, and the ultimate description of history of present illness and patient stated complaints should be deferred to this section of the note. Unless stated otherwise or congruent with this section of the note, additional signs, symptoms, or incongruence should be interpreted as inaccurate with my clinical impression. Related Data Home Medications ?Medication ?Instructions ?Recorded ?Confirmed nitroglycerin 0.4 mg sublingual 0.4 mg sublingual Q5M PRN 10/29/19 05/27/24 tablet Previous Rx's ?Medication ?Instructions ?Recorded trazodone 100 mg tablet 100 mg PO DAILY #90 tabs 01/26/24 pantoprazole 40 mg tablet,delayed 40 mg PO DAILY #90 tabs 04/16/24 release amoxicillin 500 mg tablet 500 mg PO BID 10 days #20 tabs 05/27/24 atorvastatin 40 mg tablet 40 mg PO DAILY #90 tabs 05/28/24 metoprolol succinate 25 mg 12.5 mg (1/2 x 25 mg) PO DAILY #90 05/28/24 tablet,extended release 24 hr tabs potassium chloride 10 mEq See Rx Instructions .Route 06/20/24 tablet,extended release(part/cryst) .COMPLEX #90 tabs Allergies Allergy/AdvReac Type Severity Reaction Status Date / Time clopidogrel (From Plavix) Allergy Intermediate upset Verified 05/27/24 13:39 stomach PFSH <Jhoan Campos MD - Last Filed: 06/24/24 23:03> PFSH Disclaimer: The information contained in this section may have been updated after the patient was seen, as this information can be updated by other users. Medical History (Updated 06/25/24 @ 00:35 by Tu Miller MD) Encounter for laboratory testing for COVID-19 virus Fatigue Lesion of eyelid Skin cancer Broken forearm Stomach ulcer Surgical History History of right heart catheterization Family History Sister Cancer Mother Diabetes Social History Smoking Status: Never smoker alcohol intake: current alcohol intake frequency: holidays/special occasions only substance use type: denies use current occupational status: retired Travel in the last 8 weeks?: None Have you lived/traveled outside [place] in past 30 days?: No Contact w/someone who lives/traveled outside [place] past 30 days?: No Exposure to someone with infectious disease in past 14 days?: No Do you have a fever (greater than 100.4 F or 38 C)?: No Have you tested positive for COVID-19?: No Exposed to someone with COVID-19 in past 14 days?: No Do you have a sore throat?: No Do you have a cough?: No Do you have any weakness?: No Do you have any diarrhea?: No Are you experiencing any unusual bleeding?: No Do you have any muscle aches/pain?: No Do you have any abdominal pain?: No Are you experiencing loss of taste or smell?: No Other Medical History Have you received the Pneumonia Vaccine: No <Jhoan Campos MD - Last Filed: 06/24/24 23:03> ROS Obtained: Yes Systems reviewed as appropriate & no additional complaints except as documented Physical Exam <Jhoan Campos MD - Last Filed: 06/24/24 23:03> General General appearance: alert and in no apparent distress Head Head exam: atraumatic and normocephalic Eye Eye exam: Present PERRL and EOMI ENT ENT exam: Present mucous membranes moist Neck Neck exam: Present normal inspection Chest Chest inspection: Present normal inspection and symmetric chest wall rise Respiratory Respiratory exam: Present normal lung sounds bilaterally; Absent respiratory distress Cardiovascular Cardiovascular exam: Present regular rate and normal rhythm Abdominal Exam Abdominal exam: Present soft; Absent tenderness Extremities Exam Extremities exam: Present normal inspection Neurological Exam Neurological exam: Present alert Psychiatric Psychiatric exam: Present normal affect Skin Skin exam: Present warm and dry HEART Score <Jhoan Campos MD - Last Filed: 06/24/24 23:03> HEART Score HEART Score assessment performed?: Yes History (anamnesis): Moderately suspicious ECG: Non-specific disturbance Age: >65 years Risk factors: Atherosclerosis history Troponin: </= normal limit HEART Score: 6 <Tu Miller MD - Last Filed: 06/25/24 00:43> HEART Score HEART Score: 6 Critical Care <Jhoan Campos MD - Last Filed: 06/24/24 23:03> Critical Care Time Critical Care Time: No Medical Decision Making <Jhoan Campos MD - Last Filed: 06/24/24 23:03> Ari Inquiry Pt receiving controlled substance: No Vital Signs Vital Signs: 06/24/24 20:13 06/24/24 21:00 06/24/24 21:31 Temperature 97.8 F Temperature Source Oral Pulse Rate 52 L 54 L Pulse Rate [Radial] 60 Respiratory Rate 18 14 Blood Pressure 137/71 128/61 Blood Pressure [Right Arm] 151/74 H Blood Pressure Mean [Right Arm] 99 Blood Pressure Position [Right Arm] Sitting 02 Sat by Pulse Oximetry 97 94 L 95 Oxygen Delivery Method Room Air 06/24/24 22:01 06/24/24 22:30 Temperature Temperature Source Pulse Rate 56 L 51 L Pulse Rate [Radial] Respiratory Rate 15 13 Blood Pressure 122/70 123/62 Blood Pressure [Right Arm] Blood Pressure Mean [Right Arm] Blood Pressure Position [Right Arm] 02 Sat by Pulse Oximetry 96 95 Oxygen Delivery Method Room Air Room Air Lab Data Labs: Lab Results 06/24/24 20:30: WBC 5.6, RBC 4.33 L, Hgb 14.0 L, Hct 40.0 L, MCV 92.4, MCH 32.3 H, MCHC 35.0, RDW 11.9, Plt Count 162, MPV 10.4, Neut % (Auto) 47.2, Lymph % (Auto) 40.3, [place] % (Auto) 10.7 H, Eos % (Auto) 1.4, Baso % (Auto) 0.2, Neut # (Auto) 2.7, Lymph # (Auto) 2.3, [place] # (Auto) 0.6, Eos # (Auto) 0.1, Baso # (Auto) 0.0, Sodium 136, Potassium 4.2, Chloride 103, Carbon Dioxide 29, Anion Gap 8.2, BUN 25 H, Creatinine 1.40 H, Estimated Creat Clear 56, Estimated GFR 51 L, Est GFR ( Amer) 61, Glucose 156 H, Calcium 8.9, Total Bilirubin 0.3, AST 41, ALT 48, Alkaline Phosphatase 99, Troponin I < 0.01, Total Protein 6.8, Albumin 4.1, Globulin 2.7, Albumin/Globulin Ratio 1.5 06/24/24 20:30 06/24/24 20:30 Response Orders (Tests/Meds): ED MEDICATIONS Discontinued Medications Generic Name Dose Route Start Last Admin Trade Name Freq PRN Reason Stop Dose Admin Aspirin 324 mg 06/24/24 20:36 06/24/24 21:05 Aspirin 81mg Chewable Tablet PO 06/24/24 20:37 324 mg ONCE ONE Administration Iopamidol 160 ml 06/24/24 23:19 06/24/24 23:20 Iopamidol-370 (76%);100ml Bottle IV 06/24/24 23:20 160 ml ONCE ONE Administration Morphine Sulfate 4 mg 06/24/24 20:36 06/24/24 21:08 Morphine 4mg/Ml Syringe IV 06/24/24 20:37 Not Given ONCE ONE Ondansetron HCl 4 mg 06/24/24 20:36 06/24/24 21:08 Ondansetron 4mg/2ml Vial IV 06/24/24 20:37 Not Given ONCE ONE Sodium Chloride 50 ml 06/24/24 23:19 06/24/24 23:20 0.9 % Sodium Chloride 50 Ml Vial IV 06/24/24 23:20 50 ml ONCE ONE Administration Sodium Chloride 10 ml 06/24/24 23:19 06/24/24 23:20 Sodium Chloride 0.9% 10ml Syr (Rad Only) IV 06/24/24 23:20 10 ml ONCE ONE Administration ORDERS Category Date Time Status CT angio chest - dissection Stat Cat Scan 06/24/24 22:[address] angio neck Stat Cat Scan 06/24/24 22:55 Completed CBC w/Auto Diff [Complete Blood Count Auto Diff] Stat Lab 06/24/24 20:30 Completed Comprehensive Metabolic Panel Stat Lab 06/24/24 20:30 Completed Troponin I Q3H Lab 06/25/24 01:15 Ordered Troponin I Q3H Lab 06/25/24 04:15 Ordered Troponin I Stat Lab 06/24/24 20:30 Completed ECG Data Tracing #1: ECG Narrative: RatedIndependently interpreted by me 54, rhythm is regular, axis is normal, no ST elevation in anatomical contiguous leads, QTc 397. MDM Narrative Medical Decision Narrative: In summary patient is a 69-year-old male with past medical history described above who presents emergency department for evaluation of chest pain and neck pain. Patient is hemodynamically stable and nontoxic-appearing upon arrival, afebrile. Ultrasound-guided IV anchored by me. Differential includes ACS, carotid artery dissection, among others. Patient is very concerned given that he has a horseshoe kidney about contrast. Recommendation will be conducted with hematologic labs, chest x-ray, EKG although patient will certainly require CTA to investigate this. Initial workup reviewed by me, no significant leukocytosis or anemia, no MILTON or critical electrolyte abnormality. Patient has stable CKD with creatinine of 1.4. Initial troponin undetectably low. Given persistent moderate to severe chest pain in his left chest and left neck CT angiogram chest and neck will be ordered. Imaging was pending at time of transition of care to the oncoming physician, Dr. Miller. <Tu Miller MD - Last Filed: 06/25/24 00:43> Medical Records Medical records reviewed: Yes I reviewed the patient's medical records. Vital Signs Vital Signs: 06/24/24 20:13 06/24/24 21:00 06/24/24 21:31 Temperature 97.8 F Temperature Source Oral Pulse Rate 52 L 54 L Pulse Rate [Radial] 60 Respiratory Rate 18 14 Blood Pressure 137/71 128/61 Blood Pressure [Right Arm] 151/74 H Blood Pressure Mean [Right Arm] 99 Blood Pressure Position [Right Arm] Sitting 02 Sat by Pulse Oximetry 97 94 L 95 Oxygen Delivery Method Room Air 06/24/24 22:01 06/24/24 22:30 Temperature Temperature Source Pulse Rate 56 L 51 L Pulse Rate [Radial] Respiratory Rate 15 13 Blood Pressure 122/70 123/62 Blood Pressure [Right Arm] Blood Pressure Mean [Right Arm] Blood Pressure Position [Right Arm] 02 Sat by Pulse Oximetry 96 95 Oxygen Delivery Method Room Air Room Air Lab Data Labs: Lab Results 06/24/24 20:30: WBC 5.6, RBC 4.33 L, Hgb 14.0 L, Hct 40.0 L, MCV 92.4, MCH 32.3 H, MCHC 35.0, RDW 11.9, Plt Count 162, MPV 10.4, Neut % (Auto) 47.2, Lymph % (Auto) 40.3, [place] % (Auto) 10.7 H, Eos % (Auto) 1.4, Baso % (Auto) 0.2, Neut # (Auto) 2.7, Lymph # (Auto) 2.3, [place] # (Auto) 0.6, Eos # (Auto) 0.1, Baso # (Auto) 0.0, Sodium 136, Potassium 4.2, Chloride 103, Carbon Dioxide 29, Anion Gap 8.2, BUN 25 H, Creatinine 1.40 H, Estimated Creat Clear 56, Estimated GFR 51 L, Est GFR ( Amer) 61, Glucose 156 H, Calcium 8.9, Total Bilirubin 0.3, AST 41, ALT 48, Alkaline Phosphatase 99, Troponin I < 0.01, Total Protein 6.8, Albumin 4.1, Globulin 2.7, Albumin/Globulin Ratio 1.5 Response Orders (Tests/Meds): ED MEDICATIONS Discontinued Medications Generic Name Dose Route Start Last Admin Trade Name Freq PRN Reason Stop Dose Admin Aspirin 324 mg 06/24/24 20:36 06/24/24 21:05 Aspirin 81mg Chewable Tablet PO 06/24/24 20:37 324 mg ONCE ONE Administration Iopamidol 160 ml 06/24/24 23:19 06/24/24 23:20 Iopamidol-370 (76%);100ml Bottle IV 06/24/24 23:20 160 ml ONCE ONE Administration Morphine Sulfate 4 mg 06/24/24 20:36 06/24/24 21:08 Morphine 4mg/Ml Syringe IV 06/24/24 20:37 Not Given ONCE ONE Ondansetron HCl 4 mg 06/24/24 20:36 06/24/24 21:08 Ondansetron 4mg/2ml Vial IV 06/24/24 20:37 Not Given ONCE ONE Sodium Chloride 50 ml 06/24/24 23:19 06/24/24 23:20 0.9 % Sodium Chloride 50 Ml Vial IV 06/24/24 23:20 50 ml ONCE ONE Administration Sodium Chloride 10 ml 06/24/24 23:19 06/24/24 23:20 Sodium Chloride 0.9% 10ml Syr (Rad Only) IV 06/24/24 23:20 10 ml ONCE ONE Administration ORDERS Category Date Time Status CT angio chest - dissection Stat Cat Scan 06/24/24 22:[address] angio neck Stat Cat Scan 06/24/24 22:55 Completed CBC w/Auto Diff [Complete Blood Count Auto Diff] Stat Lab 06/24/24 20:30 Completed Comprehensive Metabolic Panel Stat Lab 06/24/24 20:30 Completed Troponin I Q3H Lab 06/25/24 01:15 Ordered Troponin I Q3H Lab 06/25/24 04:15 Ordered Troponin I Stat Lab 06/24/24 20:30 Completed MDM Narrative Medical Decision Narrative: In summary patient is a 69-year-old male with past medical history described above who presents emergency department for evaluation of chest pain and neck pain. Patient is hemodynamically stable and nontoxic-appearing upon arrival, afebrile. Ultrasound-guided IV anchored by me. Differential includes ACS, carotid artery dissection, among others. Patient is very concerned given that he has a horseshoe kidney about contrast. Recommendation will be conducted with hematologic labs, chest x-ray, EKG although patient will certainly require CTA to investigate this. Initial workup reviewed by me, no significant leukocytosis or anemia, no MILTON or critical electrolyte abnormality. Patient has stable CKD with creatinine of 1.4. Initial troponin undetectably low. Given persistent moderate to severe chest pain in his left chest and left neck CT angiogram chest and neck will be ordered. Imaging was pending at time of transition of care to the oncoming physician, Dr. Miller. Miller: Upon my assumption of care patient is stable, he is resting comfortably. I agree with the assessment and plan from Dr. Campos. CT angiography of the chest and neck were personally interpreted and I do not appreciate any obvious dissection or acute stenosis, see radiology read for final interpretations. Radiology reads do, degenerative spondylosis of the C-spine. I do not believe this is contributing to his pain tonight. On reassessment patient is sleeping comfortably. I woke him up and he appears comfortable at this time with no new acute changes. I reviewed the workup with patient and family, while we do not have an answer for his source of symptoms, explained that I am reassured against acute life-threatening pathology. They are grateful for this workup. Patient reportedly has close follow-up scheduled for already which is reassuring. I instructed them to keep this appointment and make sure he has close follow-up with both cardiology and his primary care doctor this week. They were also given instructions on continued symptomatic monitoring and management, and return precautions for the ER. They indicated understanding and the patient was discharged in stable condition.
[2024-06-24 21:00] VITALS: BP 137/71; PULSE 52; O2SAT 94
[2024-06-24] MEDS: ASPIRIN 81MG CHEWABLE TABLET 324 MG PO (21:05)
--- NOTE | 2024-06-24 21:08 | PC.NURSE ---
pt refused morphine and zofran.
[2024-06-24 21:31] VITALS: BP 128/61; PULSE 54; RESP 14; O2SAT 95
[2024-06-24 22:01] VITALS: BP 122/70; PULSE 56; RESP 15; O2SAT 96
[2024-06-24 22:12] LABS: Albumin Level 4.1 g/dl (3.5-5.0); Chloride 103 mmol/L (98-107); Potassium 4.2 mmoL/L (3.5-5.1); Sodium 136 mmol/L (136-145)
[2024-06-24 22:15] LABS: Alanine Aminotransferase 48 U/L (12-78); Albumin/Globulin Ratio 1.5 (1.1-1.8); Alkaline Phosphatase 99 U/L (38-126); Anion Gap 8.2 mEq/L (5-15); Aspartate Amino Transferase 41 U/L (17-59); Bilirubin,Total 0.3 mg/dl (0.2-1.3); Blood Urea Nitrogen 25 mg/dl (9-20); Calcium 8.9 mg/dl (8.4-10.2); Carbon Dioxide 29 mmol/L (22.0-30.0); Creatinine Clearance Estimated 56 mL/min (50-200); Estimated Glomerular Filt Rate 51 ml/min (>60); GFR (African American) 61 ML/MIN (>60); Globulin 2.7 g/dL (1.3-3.2); Glucose 156 mg/dl (74-100); Total Protein,Serum 6.8 g/dl (6.3-8.2)
[2024-06-24 22:28] LABS: Troponin I < 0.01 ng/ml (0.00-0.034)
[2024-06-24 22:30] VITALS: BP 123/62; PULSE 51; RESP 13; O2SAT 95
[2024-06-24 22:32] LABS: Basophils % 0.2 % (0.1-2.0); Eosinophils # 0.1 Kmm3 (0.0-0.4); Eosinophils % 1.4 % (0.1-12.0); Immature Granulocytes # 0.01 10^3uL; Immature Granulocytes % 0.2 %; Lymphocytes # 2.3 K/mm3 (0.7-4.5); Lymphocytes % 40.3 % (10-50); Mean Corpuscular Hemoglobin 32.3 pg (27.0-31.2); Mean Corpuscular Volume 92.4 fl (80-94); Mean Platelet Volume 10.4 fl (7.4-10.4); Monocytes # 0.6 K/mm3 (0.1-1.0); Monocytes % 10.7 % (1.7-9.3); Neutrophils # 2.7 K/mm3 (1.8-7.8); Neutrophils % 47.2 % (37.0-80.0); Nucleated Red Blood Cells # 0 10^3/uL; Nucleated Red Blood Cells % 0 %; Platelet Count 162 K/mm3 (142-424); Red Blood Count 4.33 M/mm3 (4.60-6.20); Red Cell Distribution Width 11.9 % (11.5-17.5); Red Cell Distribution Width-SD 40.3 fL; White Blood Count 5.6 K/mm3 (4.8-10.8)
--- NOTE | 2024-06-24 22:50 | PC.NURSE ---
ed provider at the bedside updating pt on POC
--- NOTE | 2024-06-24 22:55 | CT_ITS ---
PROCEDURE INFORMATION: Exam: CTA Neck With Contrast Exam date and time: 06/24/2024 11:09 PM Age: 69 years old Clinical indication: Pain; Other: Left neck; Additional info: Cp L neck pain TECHNIQUE: Imaging protocol: Computed tomographic angiography of the neck with contrast. Exam focused on the cervical segments of the vasculature. 3D rendering (Not supervised by radiologist): MIP and/or 3D reconstructed images were created by the technologist. Radiation optimization: All CT scans at this facility use at least one of these dose optimization techniques: automated exposure control; mA and/or kV adjustment per patient size (includes targeted exams where dose is matched to clinical indication); or iterative reconstruction. Contrast material: ISOVUE; Contrast volume: 80 ml; Contrast route: INTRAVENOUS (IV); COMPARISON: No relevant prior studies available. FINDINGS: Right common carotid artery: No stenosis. No dissection or occlusion. Right internal carotid artery: No stenosis of the extracranial segment. No dissection or occlusion. Right external carotid artery: No occlusion or stenosis of the origin. Left common carotid artery: No stenosis. No dissection or occlusion. Left internal carotid artery: No stenosis of the extracranial segment. No dissection or occlusion. Left external carotid artery: No occlusion or stenosis of the origin. Right vertebral artery: No stenosis. No dissection or occlusion. Left vertebral artery: No stenosis. No dissection or occlusion. Soft tissues: Unremarkable. Bones/joints: Advanced degenerative spondylosis in the cervical spine. IMPRESSION: 1. No significant stenosis, dissection, or large vessel occlusion. 2. Advanced degenerative spondylosis in the cervical spine. REFERENCES: NASCET CRITERIA. The degree of stenosis in the cervical segment of the internal carotid artery is based on NASCET criteria. Normal is no stenosis. Mild is less than 50% stenosis. Moderate is 50-69% stenosis. Severe is 70% to 99% stenosis. Total occlusion is no detectable patent lumen.
--- NOTE | 2024-06-24 22:55 | CT_ITS ---
PROCEDURE INFORMATION: Exam: CTA Chest With Contrast Exam date and time: 06/24/2024 11:13 PM Age: 69 years old Clinical indication: Pain; Chest pressure; Additional info: Cp to L neck TECHNIQUE: Imaging protocol: Computed tomographic angiography of the chest with contrast. Exam focused on the arteries. 3D rendering (Not supervised by radiologist): MIP and/or 3D reconstructed images were created by the technologist. Radiation optimization: All CT scans at this facility use at least one of these dose optimization techniques: automated exposure control; mA and/or kV adjustment per patient size (includes targeted exams where dose is matched to clinical indication); or iterative reconstruction. Contrast material: ISOVUE; Contrast volume: 80 ml; Contrast route: INTRAVENOUS (IV); COMPARISON: CT CHEST WO CON 08/13/2021 8:05 AM FINDINGS: Pulmonary arteries: Normal. No pulmonary emboli. Aorta: Unremarkable. No aortic aneurysm. No aortic dissection. Lungs: Small left lower lobe calcified granuloma. Lungs are otherwise clear. Pleural spaces: Unremarkable. No pneumothorax. No pleural effusion. Heart: Unremarkable. No cardiomegaly. No pericardial effusion. Lymph nodes: Unremarkable. No enlarged lymph nodes. Kidneys: There are partially visualized findings in the upper abdomen suggesting significant left renal atrophy. Visualized portion of the right kidney appears unremarkable. Bones/joints: Unremarkable. No acute fracture. Soft tissues: Unremarkable. IMPRESSION: No acute abnormality in the chest. Findings suggesting severe left renal atrophy partially visualized in the upper abdomen
[2024-06-24] MEDS: 0.9 % SODIUM CHLORIDE 50 ML VIAL IV (23:20)
[2024-06-24] MEDS: SODIUM CHLORIDE 0.9% 10ML SYR (RAD ONLY) 10 ML IV (23:20)
[2024-06-24] MEDS: IOPAMIDOL-370 (76%);100ML BOTTLE 160 ML IV (23:20)
[2024-06-25 00:40] VITALS: BP 123/62; PULSE 52; RESP 18; TEMP 36.7; O2SAT 95
== END 2024-06-25 00:42 | disposition home or self-care (01) ==
PROVIDERS: Emergency Provider Emergency Medicine
DX: R07.89 Other chest pain (principal); R00.1 Bradycardia, unspecified; I44.0 Atrioventricular block, first degree; M54.2 Cervicalgia; I25.10 Atherosclerotic heart disease of native coronary artery without angina pectoris; E78.5 Hyperlipidemia, unspecified; Z95.5 Presence of coronary angioplasty implant and graft
CPT/HCPCS: 70498; 71275; 80053; 84484; 85025; 93005; 99285; J2270; J2405; Q9967